=== PATIENT | female | born 1995 | race Caucasian/White ===

== ENCOUNTER → 2017-06-02 | Outpatient (CLI) | payer BC | LOC: FIMAGING 14:38 | PROVIDERS: ATTEND Physician Assistant | DX: R22.32 Localized swelling, mass and lump, left upper limb (principal) ==

== ENCOUNTER 2017-06-10 19:15 | Emergency (ER) | payer BC ==
[2017-06-10 19:24] VITALS: RESP 18
--- NOTE | 2017-06-10 20:43 | EDPHY ---
H & P Stated Complaint: l index fingertip avulsion HPI/ROS: CHIEF COMPLAINT: Finger tip avulsion HISTORY OF PRESENT ILLNESS: Patient was cutting food with a knife within the past 2 hours when she accidentally sliced the tip of her left index finger. This on the volar aspect. No involvement of the nail. Moderate bleeding. Minimal pain. She has applied pressure and has stopped. This is a very superficial oblique area. No injury elsewhere. Tetanus is up-to-date. No other associated complaints or modifying factors TIME OF INJURY: Less than 2 hours prior to arrival TETANUS STATUS: Current less than 6 years ago REVIEW OF SYSTEMS: Ten systems reviewed and are negative unless otherwise noted in the HPI EXAMINATION General Appearance: Alert, no distress Head: normocephalic, atraumatic Cardiovascular: Pulses normal throughout. Symmetric radial pulses 2+. Brisk cap refill Neurological: A&O, sensory symmetric, strength symmetric. Two point sensation intact Skin: Warm and dry, no rash. 1 cm area of skin avulsion over the left index finger, volar over the distal phalanx. Very superficial in oblique. Minimal bleeding noted. No pulsatile blood flow. Neurovascular intact distally Extremities: Tender over the area of laceration. Full flexion extension of the affected finger without any deficits. Strength is symmetric including interossei. DIFFERENTIAL DIAGNOSES: Including but not limited to laceration, tissue avulsion, abrasion MDM: 8:05 p.m. Finger tip avulsion of the left index finger, volar. Mild bleeding noted. No foreign body. No signs of an arterial injury. I will administer digital block. We will proceed with irrigation and hemostasis. There is no laceration that may be repair due to avulsion. 8:40 p.m. I have re-evaluated the patient. She is yet to have her wound irrigated starting to have some pain. I administered another 5 mL of 1% lidocaine plain as below. 9:15 p.m. Wound has been irrigated. Surgicel applied 30 minutes ago. There is no bleeding. She is neurovascular intact. We will dress the wound. I discussed wound care with the patient. I would like her to be re-evaluated in 2 days for wound check. Follow up with hand surgeon for definitive care. Return to ER precautions discussed. She is comfortable with this plan and discharged home stable condition. PROCEDURE: Digital Block Indication: Finger laceration Consent: Verbal Location: Left index finger Anesthesia: Lidocaine 1% plain, 0.25% Marcaine plain, 5mL Description: Base of the left index finger was prepped with chlorhexidine. The above was infused without complication. Tolerated well. Good anesthesia. Brisk cap refill postprocedure. Complications: None ED Precautions: Worsening pain. Erythema, edema, cyanosis, pallor, paresthesia or anesthesia. SUPERVISION: This patient was independently evaluated without direct examination by the attending physician. Case was discussed with attending physician. Source: Patient Exam Limitations: No limitations - Personal History LMP (Females 10-55): Unknown Current Tetanus/Diphtheria Vaccine: Yes - Medical/Surgical History Hx Asthma: No Hx Chronic Respiratory Disease: No Hx Diabetes: No Hx Cardiac Disease: No Hx Renal Disease: No Hx Cirrhosis: No Hx Alcoholism: No Hx HIV/AIDS: No Hx Splenectomy or Spleen Trauma: No Other PMH: Denies - Social History Smoking Status: Never smoked Constitutional: Initial Vital Signs Temperature (C) 98.4 F 06/10/17 19:21 Heart Rate 76 06/10/17 19:21 Respiratory Rate 18 06/10/17 19:21 Blood Pressure 100/65 06/10/17 19:21 O2 Sat (%) 96 06/10/17 19:21 O2 Delivery Mode Room Air Allergies/Adverse Reactions: No Known Allergies Allergy (Unverified 06/10/17 19:23) Home Medications: Medication Instructions Recorded NK [No Known Home Meds] 06/10/17 Departure - Departure Disposition: Home, Routine, Self-Care Clinical Impression: Fingertip avulsion Qualifiers: Encounter type: initial encounter Qualified Code(s): S61.209A - Unspecified open wound of unspecified finger without damage to nail, initial encounter Condition: Good Instructions: Skin Avulsion (ED), Hydrocodone/Acetaminophen (By mouth) Additional Instructions: 1. Daily wound care as discussed 2. Follow up with hand surgeon for definitive care and possible wound care Referrals: NONE *PRIMARY CARE P,. [Primary Care Provider] - As per Instructions Mian Leslie MD [Medical Doctor] - As per Instructions
[2017-06-10] MEDS ORDERED: HYDROCOD/APAP 5/325 PREPACK#6 BTL TAKEHOME ONE (21:26)
[2017-06-10 21:39] VITALS: BP 93/63; PULSE 53; TEMP 97.7; O2SAT 100
== END 2017-06-10 21:39 | disposition home or self-care (01) ==
PROC: 3E0T3CZ (ICD-10-PCS; principal; 2017-06-10)
DX: S61.201A Unspecified open wound of left index finger without damage to nail, initial encounter (principal); W26.0XXA Contact with knife, initial encounter

== ENCOUNTER → 2018-10-08 | Outpatient (CLI) | payer BC | LOC: BMCIMAGING 11:17 | DX: R63.0 Anorexia (principal) ==